=== PATIENT | female | born 1995 | race African-American/Black ===

== ENCOUNTER 2018-07-15 13:51 | Emergency (ER) | payer SELFPAY ==
[~2018-07-15] VITALS: Ht 152.4 cm; Wt 52.0 kg
[2018-07-15 14:09] VITALS: BP 124/73
== END 2018-07-15 18:57 | disposition left against medical advice (07) ==
LOC: ER 13:51
DX: N93.9 Abnormal uterine and vaginal bleeding, unspecified (principal); Z53.21 Procedure and treatment not carried out due to patient leaving prior to being seen by health care provider